=== PATIENT | male | born 1970 | race Caucasian/White ===

== ENCOUNTER → 2017-10-26 | Outpatient (CLI) | payer OTHER ==
[~2017-10-26] MED LIST: AMOX-559 PO; FAMO20TA28 PO; FLUT16SP19 NS; PRED20TA6 PO
== END ==
LOC: AUD 10:00
PROVIDERS: ATTEND Otolaryngology
DX: H69.83 Other specified disorders of Eustachian tube, bilateral (principal)
CPT/HCPCS: 92557; 92570